=== PATIENT | female | born 1975 | race Caucasian/White ===

== ENCOUNTER 2016-06-04 12:53 | Emergency (ER) | payer OTHER ==
[~2016-06-04] VITALS: Ht 154.9 cm; Wt 75.9 kg
[~2016-06-04 12:53] MED LIST: ATENOLOL25 MG PO; MULTIVITAMIN1 EAC1 PO
[2016-06-04] MEDS ORDERED: NAPROXEN500 MG PO (16:06)
[2016-06-04 16:30] VITALS: BP 00/00
== END 2016-06-04 16:32 | disposition home or self-care (01) ==
LOC: EME 12:53
DX: S93.602A Unspecified sprain of left foot, initial encounter (principal); I10 Essential (primary) hypertension; Z88.6 Allergy status to analgesic agent
CPT/HCPCS: 93971; 99281; 99283

== ENCOUNTER 2016-07-10 21:00 | Observation (INO) | payer OTHER ==
[~2016-07-10] VITALS: Ht 154.9 cm; Wt 70.9 kg
[~2016-07-10 21:00] MED LIST changes: +NAPROXEN500 MG PO
[2016-07-10 22:10] LABS: MCH 28.6 PG (29.0-34.0); MCHC 34.3 G/DL (30.0-36.0); MCV 83.3 FL (83-99); MEAN PLAT.VOLUME 11.2 uM^3 (9.5-12.4); PLATELET COUNT 257 K/uL (156-360); RBC DIS.WIDTH-CV 12.9 % (11.8-14.6); RBC DIS.WIDTH-SD 38.7 % (39-53); RED BLOOD COUNT 5.04 M/uL (3.80-5.20); WHITE BLOOD COUNT 11.1 K/uL (4.1-10.2)
[2016-07-10 22:24] LABS: CHLORIDE 102 mEq/L (99-109)
[2016-07-10 22:25] LABS: POTASSIUM 2.9 mEq/L (3.7-5.4); SODIUM 135 mEq/L (136-147)
[2016-07-10 22:26] LABS: GLUCOSE 85 mg/dL (70-99)
[2016-07-10 22:28] LABS: ANION GAP 10 MEQ/L (2-14)
[2016-07-10 22:30] LABS: GFR ESTIMATE (CALCULATED) > 59 mL/min/
[2016-07-10 22:31] LABS: TROP-I INTERPRETATION NEGATIVE; TROPONIN-I < 0.01 ng/mL (0.0-0.30); UREA NITROGEN (BUN) 5 mg/dL (9-23)
[2016-07-10 22:53] LABS: TOTAL BILIRUBIN 0.5 mg/dL (0.0-1.0)
[2016-07-10 22:54] LABS: ALKALINE PHOSPHATASE 102 IU/L (3-129)
[2016-07-10 22:57] LABS: DIRECT BILIRUBIN 0.2 mg/dL (0.0-0.3)
[2016-07-10 22:58] LABS: LIPASE 10 U/L (1.0-51.0)
[2016-07-11] MEDS ORDERED: RANITIDINE HCL300 MG PO (00:32)
[2016-07-11] MEDS ORDERED: TRAMADOL HCL50 MG PO (00:32)
[2016-07-11] MEDS ORDERED: DAILY VITE1 EAC1 PO (00:32)
[2016-07-11] MEDS ORDERED: LEVOTHYROXINE100 MCG PO (00:33)
[2016-07-11] MEDS ORDERED: MELOXICAM7.5 MG PO (00:33)
[2016-07-11] MEDS ORDERED: HYDROCHLOROTHIA25 MG PO (00:34)
[2016-07-11] MEDS ORDERED: LYRICA150 MG PO (00:34)
[2016-07-11] MEDS ORDERED: LOSARTAN POTAS100 MG PO (00:34)
[2016-07-11] MEDS ORDERED: PANTOPRAZOLE SO40 MG PO (00:34)
[2016-07-11 06:06] LABS: TROP-I INTERPRETATION NEGATIVE; TROPONIN-I < 0.01 ng/mL (0.0-0.30)
[2016-07-11 13:27] LABS: TROP-I INTERPRETATION NEGATIVE; TROPONIN-I < 0.01 ng/mL (0.0-0.30)
[2016-07-11 13:51] VITALS: BP 92/54
[2016-07-11] MEDS ORDERED: SPIRIVA1 INHALATI IH (15:15)
[2016-07-11] MEDS ORDERED: VENTOLIN HFA18 GM IH (15:15)
[2016-07-11] MEDS ORDERED: PREDNISONE10 MG PO (15:15)
[2016-07-11] MEDS ORDERED: ADVAIR 250/501 DISK IH (15:15)
[2016-07-11] MEDS ORDERED: LO-DOSE ASPIRIN81 M2 PO (15:15)
[2016-07-11 15:27] LABS: MAGNESIUM 1.9 mg/dl (1.3-2.7)
[2016-07-11 15:43] LABS: POTASSIUM 4.3 MEQ/L (3.7-5.4)
== END 2016-07-11 16:38 | disposition home or self-care (01) ==
LOC: EME 21:00 → EDOF 07-11 02:33 → 5WEST 07-11 13:43
PROVIDERS: Hospitalist
DX: R07.89 Other chest pain (principal); E87.6 Hypokalemia; K52.9 Noninfective gastroenteritis and colitis, unspecified; J44.9 Chronic obstructive pulmonary disease, unspecified; I10 Essential (primary) hypertension; E03.9 Hypothyroidism, unspecified; F17.210 Nicotine dependence, cigarettes, uncomplicated
CPT/HCPCS: 71020; 71275; 80048; 80076; 83690; 83735; 84132; 84484; 85027; 85379; 93005; 99202; 99281; 99285; G0378; J1650; J2405; J7030; J7512

== ENCOUNTER 2017-07-21 03:04 | Emergency (ER) | payer OTHER ==
[~2017-07-21] VITALS: Ht 157.5 cm; Wt 75.3 kg
[~2017-07-21 03:04] MED LIST changes: +ADVAIR 250/501 DISK IH; +DAILY VITE1 EAC1 PO; +HYDROCHLOROTHIA25 MG PO; +LEVOTHYROXINE100 MCG PO; +LO-DOSE ASPIRIN81 M2 PO; +LOSARTAN POTAS100 MG PO; +LYRICA150 MG PO; +MELOXICAM7.5 MG PO; +PANTOPRAZOLE SO40 MG PO; +PREDNISONE10 MG PO; +RANITIDINE HCL300 MG PO; +SPIRIVA1 INHALATI IH; +TRAMADOL HCL50 MG PO; +VENTOLIN HFA18 GM IH
[2017-07-21 05:14] LABS: CHLORIDE 109 mEq/L (99-109); POTASSIUM 3.6 mEq/L (3.7-5.4); SODIUM 137 mEq/L (136-147)
[2017-07-21 05:16] LABS: GLUCOSE 86 mg/dL (70-99); TOTAL PROTEIN 7.1 g/dL (6.4-8.3)
[2017-07-21 05:18] LABS: TOTAL BILIRUBIN 0.3 mg/dL (0.0-1.0)
[2017-07-21 05:19] LABS: ALKALINE PHOSPHATASE 123 IU/L (3-129)
[2017-07-21 05:20] LABS: CREATININE 0.8 mg/dL (0.6-1.3); GFR ESTIMATE (CALCULATED) > 59 mL/min/
[2017-07-21 05:21] LABS: AST (GOT) 14 IU/L (2-34); UREA NITROGEN (BUN) 14 mg/dL (9-23)
[2017-07-21 05:22] LABS: BASOPHIL (%) 0.7 % (0-1); BASOPHIL COUNT 0.1 K/uL (0-0.1); EOSINOPHIL (%) 1.7 % (0-5); EOSINOPHIL COUNT 0.2 K/uL (0-0.3); HEMATOCRIT 38.6 % (36.0-46.0); HEMOGLOBIN 13.3 G/DL (11.9-15.5); IMMATURE GRANULOCYTE (%) 0.5 % (0.0-0.7); LYMPHOCYTE COUNT 3.4 K/uL (1.0-2.8); MCH 30.6 PG (29.0-34.0); MCHC 34.5 G/DL (30.0-36.0); MCV 88.9 FL (83-99); MONOCYTE (%) 7.2 % (3-12); MONOCYTE COUNT 0.8 K/uL (0-0.8); NEUTROPHIL (%) 59.9 % (45-76); NEUTROPHIL COUNT 6.8 K/uL (1.8-6.4); PLATELET COUNT 239 K/uL (156-360); RBC DIS.WIDTH-CV 13.4 % (11.8-14.6); RBC DIS.WIDTH-SD 44.2 % (39-53); RED BLOOD COUNT 4.34 M/uL (3.80-5.20); WHITE BLOOD COUNT 11.3 K/uL (4.1-10.2)
[2017-07-21 05:23] LABS: ALT (GPT) 11 IU/L (3-49)
[2017-07-21] MEDS ORDERED: ZOFRAN ODT4 MG PO (05:57)
[2017-07-21 06:14] VITALS: BP 114/77
== END 2017-07-21 06:15 | disposition home or self-care (01) ==
LOC: EME 03:04
PROVIDERS: Emergency Medicine
DX: R11.2 Nausea with vomiting, unspecified (principal); J32.9 Chronic sinusitis, unspecified; J11.1 Influenza due to unidentified influenza virus with other respiratory manifestations; I10 Essential (primary) hypertension; Z87.442 Personal history of urinary calculi; Z86.73 Personal history of transient ischemic attack (TIA), and cerebral infarction without residual deficits; Z90.49 Acquired absence of other specified parts of digestive tract; F17.200 Nicotine dependence, unspecified, uncomplicated
CPT/HCPCS: 71046; 80053; 83605; 85025; 99281; 99285; J2405; J7030